=== PATIENT | female | born 1970 | race Caucasian/White ===

== ENCOUNTER 2024-08-06 08:10 | Outpatient (CLI) | payer OTHER | END 2024-08-06 08:11 | disposition home or self-care (01) | LOC: CSHSLEEP 08:10 | PROVIDERS: ATTEND Internal Medicine Critical Care Medicine | DX: G47.33 Obstructive sleep apnea (adult) (pediatric) (principal); E66.9 Obesity, unspecified; Z68.41 Body mass index [BMI] 40.0-44.9, adult; R06.83 Snoring; J45.909 Unspecified asthma, uncomplicated | CPT/HCPCS: 95810 ==